=== PATIENT | male | born 1955 | race Caucasian/White ===

== ENCOUNTER 2021-03-03 14:27 | Inpatient (IN) | payer MEDICAID ==
[~2021-03-03] VITALS: Ht 167.6 cm; Wt 59.9 kg
[2021-03-03] MEDS ORDERED: PIPERACILLIN/TAZ 3.375G PREMIX 50 ML IV ONE (15:30)
[2021-03-03] MEDS ORDERED: VANCOMYCIN 1 G PREMIX 200 ML IV ONE (15:30)
[2021-03-03] MEDS ORDERED: SODIUM CHLORIDE 0.9% 1000ML BAG (SEPSIS BOLUS) IV ONE (15:30)
[2021-03-03 15:50] LABS: BASOPHILS % 0.7 % (0.0-2.0); EOSINOPHILS % 1.2 % (0.0-5.0); HEMOGLOBIN. 10.6 g/dL (14.0-18.0); LYMPHOCYTES % 12.8 % (20.0-50.0); MEAN CORPUSCULAR HEMOGLOBIN 29.8 pg (28.0-32.0); MEAN CORPUSCULAR VOLUME 93.2 fL (80.0-94.0); MEAN PLATELET VOLUME 8.8 fl (7.4-10.4); MONOCYTES % 6.2 % (2.0-8.0); NEUTROPHILS % 79.1 % (40.0-76.0); PLATELET 225 x1000/uL (130-400); RED BLOOD CELL COUNT 3.54 mill/uL (4.7-6.1); RED CELL DISTRIBUTION WIDTH 16.6 % (11.6-14.6)
[2021-03-03 15:52] LABS: CHLORIDE 101 mEq/L (98-107)
[2021-03-03 15:55] LABS: INR 1.1; PARTIAL THROMBOPLASTIN TIME 33.3 sec (23.4-31.0); PROTHROMBIN TIME 11.5 sec (9.6-11.0)
[2021-03-03 15:56] LABS: ETHANOL BLOOD < 10 mg/dL
[2021-03-03 16:22] LABS: BG BASE EXCESS -0.2 mmol/L (-2.0-2.0); BG CARBOXYHEMOGLOBIN 4.3 % (0.5-1.5); BG DEOXYHEMOGLOBIN 17.9 % (0.0-5.0); BG FRACTION INSPIRED OXYGEN 36; BG HCO3 ACT 25.7 mmol/L (22.0-26.0); BG METHEMOGLOBIN 0.3 % (0.0-1.5); BG OXYGEN SATURATION 81.2 % (92.0-98.5); BG OXYHEMOGLOBIN 77.5 % (94.0-97.0); BG PCO2 47.1 mmHg (35.0-45.0); BG PH 7.354 (7.350-7.450); BG PO2 46.7 mmHg (75.0-100.0); BG SAMPLE SITE RIGHT RADIAL; BG TOTAL HEMOGLOBIN 11.2 g/dL (12.0-18.0); BG VENT MODE NASAL CANNULA
[2021-03-03] MEDS ORDERED: PROPOFOL 10MG/ML 100ML 100 ML IV STA (16:38)
[2021-03-03 18:48] LABS: BG CARBOXYHEMOGLOBIN 2.9 % (0.5-1.5); BG DEOXYHEMOGLOBIN 11.9 % (0.0-5.0); BG FRACTION INSPIRED OXYGEN 100; BG HCO3 ACT 23.2 mmol/L (22.0-26.0); BG METHEMOGLOBIN 0.2 % (0.0-1.5); BG OXYGEN SATURATION 87.7 % (92.0-98.5); BG PCO2 46.6 mmHg (35.0-45.0); BG PH 7.315 (7.350-7.450); BG PO2 58.5 mmHg (75.0-100.0); BG SAMPLE SITE RIGHT RADIAL; BG TOTAL HEMOGLOBIN 10.9 g/dL (12.0-18.0); BG VENT MODE VENT - AC
[2021-03-04] VITALS (21 sets, daily range): BP systolic 106–175; BP diastolic 42–111
[2021-03-04] MEDS ORDERED: PROPOFOL 10MG/ML 100ML 100 ML IV SCH ×2 (03:45→12:15)
[2021-03-04 05:04] LABS: BASOPHILS % 0.6 % (0.0-2.0); EOSINOPHILS % 1.1 % (0.0-5.0); HEMATOCRIT. 33.5 % (42.0-52.0); HEMOGLOBIN. 10.5 g/dL (14.0-18.0); LYMPHOCYTES % 15.6 % (20.0-50.0); MEAN CORPUSCULAR HEMOGLOBIN 29.7 pg (28.0-32.0); MEAN CORPUSCULAR VOLUME 94.7 fL (80.0-94.0); MEAN PLATELET VOLUME 8.8 fl (7.4-10.4); NEUTROPHILS % 73.7 % (40.0-76.0); PLATELET 187 x1000/uL (130-400); RED BLOOD CELL COUNT 3.54 mill/uL (4.7-6.1); RED CELL DISTRIBUTION WIDTH 16.8 % (11.6-14.6)
[2021-03-04 05:16] LABS: PHOSPHORUS 4.5 mg/dL (2.5-4.9)
[2021-03-04] MEDS: BLOOD SUGAR DIAGNOSTIC STRIP TEST SCH ×3 (06:30→18:28)
[2021-03-04] MEDS ORDERED: BLOOD SUGAR DIAGNOSTIC STRIP TEST SCH (06:30)
[2021-03-04] MEDS: INSULIN LISPRO 100 UNITS/ML SUBCUT SCH ×3 (09:23→18:00)
[2021-03-04] MEDS: DEXTROSE 50% WATER 50ML SYRINGE IV PRN ×2 (09:40→14:19)
[2021-03-04] MEDS: CEFEPIME 1,000 MG in DEXTROSE 5% WATER 50 ML IV SCH (14:19)
[2021-03-04] MEDS: ENOXAPARIN 80MG/0.8ML SYR SUBCUT SCH (14:23)
[2021-03-04] MEDS ORDERED: IOHEXOL-350 100 ML BOTTLE ONE (15:21)
[2021-03-04 16:09] LABS: HEPATITIS B SURFACE ANTIGEN NEGATIVE
[2021-03-04 17:39] LABS: CLARITY URINE CLOUDY (CLEAR); COLOR URINE DARK YELLOW (YELLOW); KETONES URINE NEGATIVE (NEGATIVE); LEUKOCYTE ESTERASE URINE 1+ (NEGATIVE); NITRITE URINE NEGATIVE (NEGATIVE); OCCULT BLOOD URINE TRACE (NEGATIVE); PH URINE 6.5 (4.5-8.0); PROTEIN URINE 4+ (NEGATIVE); UROBILINOGEN URINE 0.2 E.U./dL (0.2-1.0)
[2021-03-04] MEDS ORDERED: FENTANYL CITRATE/PF 1,000 MCG in SODIUM CHLORIDE 0.9% 80 ML IV PRN (18:15)
[2021-03-04] MEDS ORDERED: MIDAZOLAM 100MG/100ML PMX 100 ML IV PRN (18:15)
[2021-03-04] MEDS ORDERED: MIDAZOLAM HCL 100 MG in SODIUM CHLORIDE 0.9% 100 ML IV PRN (18:30)
[2021-03-04] MEDS ORDERED: NOREPINEPHRINE 8MG/250ML PMX 250 ML IV ONE (18:30)
[2021-03-04] MEDS: PROPOFOL 10MG/ML 100ML 100 ML IV PRN ×2 (18:33→22:14)
[2021-03-04] MEDS: DOPAMINE 400MG/250ML PREMIX 250 ML IV PRN (19:15)
[2021-03-04] MEDS: FENTANYL CITRATE 2,500 MCG in SODIUM CHLORIDE 0.9% 200 ML IV PRN (19:46)
[2021-03-04] MEDS: NOREPINEPHRINE 8 MG in DEXTROSE 5% WATER 250 ML IV PRN (22:16)
[2021-03-05] VITALS (112 sets, daily range): BP systolic 75–198; BP diastolic 52–136
[2021-03-05] MEDS: BLOOD SUGAR DIAGNOSTIC STRIP TEST SCH ×4 (00:40→18:00)
[2021-03-05 05:50] LABS: BASOPHILS % 0.8 % (0.0-2.0); EOSINOPHILS % 1.3 % (0.0-5.0); HEMATOCRIT. 36.7 % (42.0-52.0); HEMOGLOBIN. 11.9 g/dL (14.0-18.0); LYMPHOCYTES % 15.5 % (20.0-50.0); MEAN CORPUSCULAR HEMOGLOBIN 29.9 pg (28.0-32.0); MEAN CORPUSCULAR VOLUME 92.4 fL (80.0-94.0); MEAN PLATELET VOLUME 8.4 fl (7.4-10.4); MONOCYTES % 9.3 % (2.0-8.0); NEUTROPHILS % 73.1 % (40.0-76.0); PLATELET 206 x1000/uL (130-400); RED BLOOD CELL COUNT 3.97 mill/uL (4.7-6.1); RED CELL DISTRIBUTION WIDTH 16.8 % (11.6-14.6)
[2021-03-05] MEDS: DEXTROSE 50% WATER 50ML SYRINGE IV PRN (05:58)
[2021-03-05] MEDS: INSULIN LISPRO 100 UNITS/ML SUBCUT SCH ×4 (06:00→18:00)
[2021-03-05 06:19] LABS: PHOSPHORUS 3.4 mg/dL (2.5-4.9)
[2021-03-05] MEDS: PROPOFOL 10MG/ML 100ML 100 ML IV PRN ×2 (06:45→20:42)
[2021-03-05 08:14] LABS: BG BASE EXCESS -2.1 mmol/L (-2.0-2.0); BG CARBOXYHEMOGLOBIN 0.5 % (0.5-1.5); BG DEOXYHEMOGLOBIN 4.6 % (0.0-5.0); BG FRACTION INSPIRED OXYGEN 70; BG HCO3 ACT 22.8 mmol/L (22.0-26.0); BG METHEMOGLOBIN 0.1 % (0.0-1.5); BG OXYGEN SATURATION 95.4 % (92.0-98.5); BG OXYHEMOGLOBIN 94.8 % (94.0-97.0); BG PCO2 39.5 mmHg (35.0-45.0); BG PH 7.379 (7.350-7.450); BG PO2 80.9 mmHg (75.0-100.0); BG SAMPLE SITE RIGHT BRACHIAL; BG TOTAL HEMOGLOBIN 12.2 g/dL (12.0-18.0); BG TOTAL RESPIRATORY RATE 14 b/min; BG VENT MODE VENT - AC
[2021-03-05] MEDS ORDERED: POTASSIUM CHLORIDE 20MEQ/PACKET PO NR (09:00)
[2021-03-05] MEDS: CEFEPIME 1,000 MG in DEXTROSE 5% WATER 50 ML IV SCH (12:17)
[2021-03-05] MEDS: METHYLPREDNISOLONE SOD SUCC 40 MG/ML VIAL IV SCH ×2 (12:24→22:50)
[2021-03-05] MEDS: ENOXAPARIN 80MG/0.8ML SYR SUBCUT SCH (14:19)
[2021-03-06] VITALS (86 sets, daily range): BP systolic 108–148; BP diastolic 58–94
[2021-03-06] MEDS: PROPOFOL 10MG/ML 100ML 100 ML IV PRN ×3 (05:46→23:44)
[2021-03-06] MEDS: BLOOD SUGAR DIAGNOSTIC STRIP TEST SCH ×5 (05:47→23:39)
[2021-03-06] MEDS: METHYLPREDNISOLONE SOD SUCC 40 MG/ML VIAL IV SCH ×3 (05:47→21:27)
[2021-03-06] MEDS: INSULIN LISPRO 100 UNITS/ML SUBCUT SCH ×5 (05:47→23:45)
[2021-03-06 06:17] LABS: HEMATOCRIT. 34.6 % (42.0-52.0); HEMOGLOBIN. 10.9 g/dL (14.0-18.0); MEAN CORPUSCULAR HEMOGLOBIN 29.4 pg (28.0-32.0); MEAN CORPUSCULAR VOLUME 93.1 fL (80.0-94.0); MEAN PLATELET VOLUME 8.4 fl (7.4-10.4); PLATELET 217 x1000/uL (130-400); RED BLOOD CELL COUNT 3.72 mill/uL (4.7-6.1); RED CELL DISTRIBUTION WIDTH 16.8 % (11.6-14.6)
[2021-03-06 08:29] LABS: PHOSPHORUS 5.9 mg/dL (2.5-4.9)
[2021-03-06 08:55] LABS: PLATELET ESTIMATE NORMAL
[2021-03-06 09:49] LABS: BG BASE EXCESS -3.5 mmol/L (-2.0-2.0); BG CARBOXYHEMOGLOBIN 0.7 % (0.5-1.5); BG DEOXYHEMOGLOBIN 10.7 % (0.0-5.0); BG FRACTION INSPIRED OXYGEN 70; BG HCO3 ACT 22.2 mmol/L (22.0-26.0); BG METHEMOGLOBIN 0.3 % (0.0-1.5); BG OXYGEN SATURATION 89.2 % (92.0-98.5); BG OXYHEMOGLOBIN 88.3 % (94.0-97.0); BG PCO2 42.4 mmHg (35.0-45.0); BG PH 7.337 (7.350-7.450); BG PO2 61.9 mmHg (75.0-100.0); BG TOTAL HEMOGLOBIN 12.1 g/dL (12.0-18.0); BG VENT MODE VENT - AC
[2021-03-06] MEDS: ENOXAPARIN 80MG/0.8ML SYR SUBCUT SCH (13:00)
[2021-03-06] MEDS ORDERED: SODIUM BICARBONATE 4% (2.4MEQ) 5ML VIAL IV ONE (13:20)
[2021-03-06] MEDS: CEFEPIME 1,000 MG in DEXTROSE 5% WATER 50 ML IV SCH (14:20)
[2021-03-06] MEDS: LANTHANUM CARBONATE 500MG CHEW TABLET PO SCH ×2 (14:20→17:50)
[2021-03-06] MEDS ORDERED: ENOXAPARIN 80MG/0.8ML SYR SUBCUT SCH (15:00)
[2021-03-07] VITALS (93 sets, daily range): BP systolic 110–153; BP diastolic 58–96
[2021-03-07] MEDS: FENTANYL CITRATE 2,500 MCG in SODIUM CHLORIDE 0.9% 200 ML IV PRN (03:32)
[2021-03-07] MEDS: BLOOD SUGAR DIAGNOSTIC STRIP TEST SCH ×4 (05:45→23:47)
[2021-03-07] MEDS: INSULIN LISPRO 100 UNITS/ML SUBCUT SCH ×4 (05:50→23:21)
[2021-03-07] MEDS: METHYLPREDNISOLONE SOD SUCC 40 MG/ML VIAL IV SCH ×3 (05:50→22:21)
[2021-03-07 05:59] LABS: HEMATOCRIT. 33.9 % (42.0-52.0); HEMOGLOBIN. 10.7 g/dL (14.0-18.0); MEAN CORPUSCULAR HEMOGLOBIN 29.9 pg (28.0-32.0); MEAN CORPUSCULAR VOLUME 94.4 fL (80.0-94.0); MEAN PLATELET VOLUME 8.2 fl (7.4-10.4); PLATELET 187 x1000/uL (130-400)
[2021-03-07] MEDS: ZINC SULFATE 220 MG ( 50 ) CAPSULE PO SCH (08:49)
[2021-03-07] MEDS: ASCORBIC ACID 500 MG TABLET PO SCH (08:49)
[2021-03-07] MEDS: LANTHANUM CARBONATE 500MG CHEW TABLET PO SCH ×3 (08:49→18:20)
[2021-03-07] MEDS: ENOXAPARIN 80MG/0.8ML SYR SUBCUT SCH (08:49)
[2021-03-07] MEDS: PROPOFOL 10MG/ML 100ML 100 ML IV PRN ×2 (08:50→18:22)
[2021-03-07 09:10] LABS: BG BASE EXCESS -4.2 mmol/L (-2.0-2.0); BG CARBOXYHEMOGLOBIN 0.5 % (0.5-1.5); BG DEOXYHEMOGLOBIN 3.3 % (0.0-5.0); BG FRACTION INSPIRED OXYGEN 40; BG HCO3 ACT 20.3 mmol/L (22.0-26.0); BG METHEMOGLOBIN 0.3 % (0.0-1.5); BG OXYGEN SATURATION 96.7 % (92.0-98.5); BG OXYHEMOGLOBIN 95.9 % (94.0-97.0); BG PCO2 34.8 mmHg (35.0-45.0); BG PH 7.383 (7.350-7.450); BG PO2 93.4 mmHg (75.0-100.0); BG SAMPLE SITE RIGHT BRACHIAL; BG TOTAL HEMOGLOBIN 11.3 g/dL (12.0-18.0); BG VENT MODE VENT - AC
[2021-03-07 10:30] LABS: INR 1.1; PROTHROMBIN TIME 11.5 sec (9.6-11.0)
[2021-03-07 12:50] LABS: PLATELET ESTIMATE NORMAL
[2021-03-07] MEDS: CEFEPIME 1,000 MG in DEXTROSE 5% WATER 50 ML IV SCH (13:23)
[2021-03-08] VITALS (98 sets, daily range): BP systolic 81–193; BP diastolic 50–101
[2021-03-08] MEDS: FENTANYL CITRATE 2,500 MCG in SODIUM CHLORIDE 0.9% 200 ML IV PRN (05:09)
[2021-03-08] MEDS: BLOOD SUGAR DIAGNOSTIC STRIP TEST SCH ×3 (05:38→17:43)
[2021-03-08] MEDS: PROPOFOL 10MG/ML 100ML 100 ML IV PRN ×2 (05:38→12:57)
[2021-03-08] MEDS: INSULIN LISPRO 100 UNITS/ML SUBCUT SCH ×4 (05:38→17:43)
[2021-03-08] MEDS: METHYLPREDNISOLONE SOD SUCC 40 MG/ML VIAL IV SCH ×3 (05:56→21:13)
[2021-03-08 06:00] LABS: HEMATOCRIT. 33.4 % (42.0-52.0); HEMOGLOBIN. 10.7 g/dL (14.0-18.0); MEAN CORPUSCULAR VOLUME 96.5 fL (80.0-94.0); MEAN PLATELET VOLUME 8.3 fl (7.4-10.4); PLATELET 178 x1000/uL (130-400); RED BLOOD CELL COUNT 3.46 mill/uL (4.7-6.1); RED CELL DISTRIBUTION WIDTH 17.7 % (11.6-14.6)
[2021-03-08 06:01] LABS: CHLORIDE 105 mEq/L (98-107)
[2021-03-08 08:07] LABS: PROTHROMBIN TIME 10.9 sec (9.6-11.0)
[2021-03-08] MEDS: ASCORBIC ACID 500 MG TABLET PO SCH (08:28)
[2021-03-08] MEDS: LANTHANUM CARBONATE 500MG CHEW TABLET PO SCH ×3 (08:28→17:47)
[2021-03-08] MEDS: ENOXAPARIN 80MG/0.8ML SYR SUBCUT SCH (08:28)
[2021-03-08] MEDS: ZINC SULFATE 220 MG ( 50 ) CAPSULE PO SCH (08:28)
[2021-03-08 09:13] LABS: BG CARBOXYHEMOGLOBIN 0.2 % (0.5-1.5); BG DEOXYHEMOGLOBIN 2.3 % (0.0-5.0); BG FRACTION INSPIRED OXYGEN 40; BG HCO3 ACT 20.5 mmol/L (22.0-26.0); BG METHEMOGLOBIN 0.3 % (0.0-1.5); BG OXYGEN SATURATION 97.7 % (92.0-98.5); BG OXYHEMOGLOBIN 97.2 % (94.0-97.0); BG PCO2 39.6 mmHg (35.0-45.0); BG PH 7.331 (7.350-7.450); BG PO2 109.5 mmHg (75.0-100.0); BG SAMPLE SITE LEFT BRACHIAL; BG TOTAL HEMOGLOBIN 11.1 g/dL (12.0-18.0); BG TOTAL RESPIRATORY RATE 14 b/min; BG VENT MODE VENT - AC
[2021-03-08 10:35] LABS: PLATELET ESTIMATE NORMAL
[2021-03-08] MEDS ORDERED: SODIUM BICARBONATE 4% (2.4MEQ) 5ML VIAL IV ONE (10:40)
[2021-03-08] MEDS: CEFEPIME 1,000 MG in DEXTROSE 5% WATER 50 ML IV SCH (13:01)
[2021-03-08] MEDS: DOPAMINE 400MG/250ML PREMIX 250 ML IV PRN (15:06)
[2021-03-08] MEDS ORDERED: PROPOFOL 10MG/ML 100ML 100 ML IV PRN (17:16)
[2021-03-09] VITALS (91 sets, daily range): BP systolic 110–166; BP diastolic 62–101
[2021-03-09] MEDS: FENTANYL CITRATE 2,500 MCG in SODIUM CHLORIDE 0.9% 200 ML IV PRN (04:00)
[2021-03-09] MEDS: METHYLPREDNISOLONE SOD SUCC 40 MG/ML VIAL IV SCH ×3 (05:48→21:01)
[2021-03-09] MEDS: BLOOD SUGAR DIAGNOSTIC STRIP TEST SCH ×4 (05:49→17:25)
[2021-03-09] MEDS: INSULIN LISPRO 100 UNITS/ML SUBCUT SCH ×4 (05:49→17:47)
[2021-03-09] MEDS: ZINC SULFATE 220 MG ( 50 ) CAPSULE PO SCH (09:13)
[2021-03-09] MEDS: ASCORBIC ACID 500 MG TABLET PO SCH (09:13)
[2021-03-09] MEDS: ENOXAPARIN 80MG/0.8ML SYR SUBCUT SCH (09:13)
[2021-03-09] MEDS: LANTHANUM CARBONATE 500MG CHEW TABLET PO SCH ×3 (09:13→17:44)
[2021-03-09] MEDS: PROPOFOL 10MG/ML 100ML 100 ML IV PRN ×2 (09:31→23:32)
[2021-03-10] VITALS (84 sets, daily range): BP systolic 112–165; BP diastolic 71–108
[2021-03-10] MEDS: BLOOD SUGAR DIAGNOSTIC STRIP TEST SCH ×5 (00:49→23:11)
[2021-03-10] MEDS: INSULIN LISPRO 100 UNITS/ML SUBCUT SCH ×5 (00:55→23:11)
[2021-03-10] MEDS: FENTANYL CITRATE/PF 2,500 MCG in SODIUM CHLORIDE 0.9% 200 ML IV PRN (00:58)
[2021-03-10 05:47] LABS: BASOPHILS % 0.1 % (0.0-2.0); EOSINOPHILS % 0.1 % (0.0-5.0); HEMATOCRIT. 32.9 % (42.0-52.0); HEMOGLOBIN. 10.4 g/dL (14.0-18.0); LYMPHOCYTES % 12.6 % (20.0-50.0); MEAN CORPUSCULAR HEMOGLOBIN 29.4 pg (28.0-32.0); MEAN CORPUSCULAR VOLUME 92.8 fL (80.0-94.0); MEAN PLATELET VOLUME 7.8 fl (7.4-10.4); MONOCYTES % 7.9 % (2.0-8.0); NEUTROPHILS % 79.3 % (40.0-76.0); PLATELET 142 x1000/uL (130-400); RED BLOOD CELL COUNT 3.55 mill/uL (4.7-6.1); RED CELL DISTRIBUTION WIDTH 17.6 % (11.6-14.6)
[2021-03-10] MEDS: METHYLPREDNISOLONE SOD SUCC 40 MG/ML VIAL IV SCH ×3 (06:31→21:51)
[2021-03-10] MEDS: ENOXAPARIN 80MG/0.8ML SYR SUBCUT SCH (08:36)
[2021-03-10] MEDS: PROPOFOL 10MG/ML 100ML 100 ML IV PRN (09:45)
[2021-03-10] MEDS: ZINC SULFATE 220 MG ( 50 ) CAPSULE PO SCH (09:49)
[2021-03-10] MEDS: ASCORBIC ACID 500 MG TABLET PO SCH (09:49)
[2021-03-10] MEDS: LANTHANUM CARBONATE 500MG CHEW TABLET PO SCH ×3 (09:49→17:29)
[2021-03-10] MEDS ORDERED: AMLODIPINE 5MG TABLET PO NR (17:00)
[2021-03-10] MEDS ORDERED: HYDRALAZINE 20MG/ML VIAL IV PRN (22:45)
[2021-03-10] MEDS: HYDRALAZINE HCL 25MG TABLET PO SCH (23:10)
[2021-03-11] VITALS (89 sets, daily range): BP systolic 108–174; BP diastolic 60–101
[2021-03-11] MEDS: PROPOFOL 10MG/ML 100ML 100 ML IV PRN ×3 (00:43→21:41)
[2021-03-11] MEDS: BLOOD SUGAR DIAGNOSTIC STRIP TEST SCH ×4 (05:18→23:17)
[2021-03-11] MEDS: METHYLPREDNISOLONE SOD SUCC 40 MG/ML VIAL IV SCH ×3 (06:09→21:34)
[2021-03-11 06:10] LABS: HEMOGLOBIN. 11.9 g/dL (14.0-18.0); MEAN CORPUSCULAR HEMOGLOBIN 29.5 pg (28.0-32.0); MEAN CORPUSCULAR VOLUME 93.9 fL (80.0-94.0); PLATELET 153 x1000/uL (130-400); RED BLOOD CELL COUNT 4.04 mill/uL (4.7-6.1); RED CELL DISTRIBUTION WIDTH 17.2 % (11.6-14.6)
[2021-03-11] MEDS: INSULIN LISPRO 100 UNITS/ML SUBCUT SCH ×4 (06:10→23:17)
[2021-03-11] MEDS: LANTHANUM CARBONATE 500MG CHEW TABLET PO SCH ×3 (08:07→17:28)
[2021-03-11] MEDS: ZINC SULFATE 220 MG ( 50 ) CAPSULE PO SCH (08:07)
[2021-03-11] MEDS: AMLODIPINE 5MG TABLET PO SCH (08:08)
[2021-03-11] MEDS: ASCORBIC ACID 500 MG TABLET PO SCH (08:08)
[2021-03-11] MEDS: ENOXAPARIN 80MG/0.8ML SYR SUBCUT SCH (08:09)
[2021-03-11] MEDS: HYDRALAZINE HCL 25MG TABLET PO SCH ×3 (08:09→17:28)
[2021-03-11 10:05] LABS: BG BASE EXCESS -0.1 mmol/L (-2.0-2.0); BG CARBOXYHEMOGLOBIN 0.7 % (0.5-1.5); BG DEOXYHEMOGLOBIN 2.1 % (0.0-5.0); BG FRACTION INSPIRED OXYGEN 40; BG HCO3 ACT 24.8 mmol/L (22.0-26.0); BG OXYGEN SATURATION 97.9 % (92.0-98.5); BG OXYHEMOGLOBIN 97.2 % (94.0-97.0); BG PCO2 41.1 mmHg (35.0-45.0); BG PH 7.398 (7.350-7.450); BG PO2 109.1 mmHg (75.0-100.0); BG SAMPLE SITE RIGHT RADIAL; BG TOTAL HEMOGLOBIN 11.8 g/dL (12.0-18.0); BG TOTAL RESPIRATORY RATE 14 b/min; BG VENT MODE VENT - SIMV
[2021-03-11 11:29] LABS: PLATELET ESTIMATE NORMAL
[2021-03-11] MEDS: FENTANYL CITRATE/PF 2,500 MCG in SODIUM CHLORIDE 0.9% 200 ML IV PRN (12:49)
[2021-03-12] VITALS (48 sets, daily range): BP systolic 128–163; BP diastolic 65–97
[2021-03-12] MEDS: BLOOD SUGAR DIAGNOSTIC STRIP TEST SCH ×3 (05:08→17:39)
[2021-03-12] MEDS: METHYLPREDNISOLONE SOD SUCC 40 MG/ML VIAL IV SCH ×3 (05:08→21:36)
[2021-03-12] MEDS: INSULIN LISPRO 100 UNITS/ML SUBCUT SCH ×3 (05:09→17:48)
[2021-03-12 06:20] LABS: HEMATOCRIT. 36.3 % (42.0-52.0); HEMOGLOBIN. 11.2 g/dL (14.0-18.0); MEAN CORPUSCULAR HEMOGLOBIN 28.6 pg (28.0-32.0); MEAN CORPUSCULAR VOLUME 92.8 fL (80.0-94.0); MEAN PLATELET VOLUME 8.3 fl (7.4-10.4); PLATELET 135 x1000/uL (130-400); RED BLOOD CELL COUNT 3.91 mill/uL (4.7-6.1); RED CELL DISTRIBUTION WIDTH 17.2 % (11.6-14.6)
[2021-03-12] MEDS: ENOXAPARIN 80MG/0.8ML SYR SUBCUT SCH (08:13)
[2021-03-12] MEDS: ASCORBIC ACID 500 MG TABLET PO SCH (08:13)
[2021-03-12] MEDS: HYDRALAZINE HCL 25MG TABLET PO SCH ×3 (08:16→17:47)
[2021-03-12] MEDS: AMLODIPINE 5MG TABLET PO SCH (08:16)
[2021-03-12] MEDS: LANTHANUM CARBONATE 500MG CHEW TABLET PO SCH ×3 (08:16→17:47)
[2021-03-12] MEDS: ZINC SULFATE 220 MG ( 50 ) CAPSULE PO SCH (08:16)
[2021-03-12 09:40] LABS: BG BASE EXCESS -1.5 mmol/L (-2.0-2.0); BG CARBOXYHEMOGLOBIN 0.3 % (0.5-1.5); BG DEOXYHEMOGLOBIN 1.3 % (0.0-5.0); BG FRACTION INSPIRED OXYGEN 40; BG HCO3 ACT 23.8 mmol/L (22.0-26.0); BG METHEMOGLOBIN 0.3 % (0.0-1.5); BG OXYGEN SATURATION 98.7 % (92.0-98.5); BG OXYHEMOGLOBIN 98.1 % (94.0-97.0); BG PCO2 42.2 mmHg (35.0-45.0); BG PH 7.369 (7.350-7.450); BG PO2 144.3 mmHg (75.0-100.0); BG TOTAL HEMOGLOBIN 11.8 g/dL (12.0-18.0); BG VENT MODE VENT - SIMV
[2021-03-12 10:21] LABS: PLATELET ESTIMATE NORMAL
[2021-03-12] MEDS: PROPOFOL 10MG/ML 100ML 100 ML IV PRN (10:57)
[2021-03-12] MEDS: LOSARTAN POTASSIUM 25 MG TABLET NG SCH (12:50)
[2021-03-12] MEDS: FENTANYL CITRATE/PF 2,500 MCG in SODIUM CHLORIDE 0.9% 200 ML IV PRN (18:14)
[2021-03-12] MEDS ORDERED: PROPOFOL 10MG/ML 100ML 100 ML IV PRN (20:30)
[2021-03-13] VITALS (74 sets, daily range): BP systolic 75–168; BP diastolic 41–105
[2021-03-13] MEDS: BLOOD SUGAR DIAGNOSTIC STRIP TEST SCH ×4 (00:17→17:44)
[2021-03-13] MEDS: INSULIN LISPRO 100 UNITS/ML SUBCUT SCH ×4 (00:19→17:44)
[2021-03-13] MEDS: METHYLPREDNISOLONE SOD SUCC 40 MG/ML VIAL IV SCH ×3 (05:28→21:58)
[2021-03-13 06:51] LABS: PHOSPHORUS 6.2 mg/dL (2.5-4.9)
[2021-03-13] MEDS: LANTHANUM CARBONATE 500MG CHEW TABLET PO SCH ×3 (08:20→17:44)
[2021-03-13] MEDS: HYDRALAZINE HCL 25MG TABLET PO SCH ×3 (09:00→17:00)
[2021-03-13] MEDS: ASCORBIC ACID 500 MG TABLET PO SCH (09:00)
[2021-03-13] MEDS: LOSARTAN POTASSIUM 25 MG TABLET NG SCH (09:00)
[2021-03-13] MEDS: AMLODIPINE 5MG TABLET PO SCH (09:00)
[2021-03-13] MEDS: ZINC SULFATE 220 MG ( 50 ) CAPSULE PO SCH (09:00)
[2021-03-13 09:06] LABS: HEMATOCRIT. 36.3 % (42.0-52.0); HEMOGLOBIN. 11.3 g/dL (14.0-18.0); MEAN CORPUSCULAR HEMOGLOBIN 28.8 pg (28.0-32.0); MEAN CORPUSCULAR VOLUME 92.8 fL (80.0-94.0); MEAN PLATELET VOLUME 8.3 fl (7.4-10.4); PLATELET 182 x1000/uL (130-400); RED BLOOD CELL COUNT 3.91 mill/uL (4.7-6.1); RED CELL DISTRIBUTION WIDTH 17.3 % (11.6-14.6)
[2021-03-13] MEDS: ENOXAPARIN 80MG/0.8ML SYR SUBCUT SCH (09:42)
[2021-03-13 10:03] LABS: BG BASE EXCESS -5.1 mmol/L (-2.0-2.0); BG CARBOXYHEMOGLOBIN 0.3 % (0.5-1.5); BG DEOXYHEMOGLOBIN 2.5 % (0.0-5.0); BG FRACTION INSPIRED OXYGEN 40; BG HCO3 ACT 20.3 mmol/L (22.0-26.0); BG METHEMOGLOBIN 0.3 % (0.0-1.5); BG OXYGEN SATURATION 97.5 % (92.0-98.5); BG OXYHEMOGLOBIN 96.9 % (94.0-97.0); BG PCO2 38.9 mmHg (35.0-45.0); BG PH 7.335 (7.350-7.450); BG PO2 112.5 mmHg (75.0-100.0); BG SAMPLE SITE RIGHT RADIAL; BG TOTAL HEMOGLOBIN 12.4 g/dL (12.0-18.0); BG TOTAL RESPIRATORY RATE 20 b/min; BG VENT MODE VENT - SIMV
[2021-03-13 12:05] LABS: PLATELET ESTIMATE NORMAL
[2021-03-13] MEDS: NOREPINEPHRINE 8 MG in DEXTROSE 5% WATER 250 ML IV PRN (16:03)
[2021-03-13] MEDS: PIPERACILLIN/TAZOBACTAM 3.375 G in DEXTROSE 5% WATER 50 ML IV SCH (22:20)
[2021-03-14] VITALS (94 sets, daily range): BP systolic 104–172; BP diastolic 46–113
[2021-03-14] MEDS: METHYLPREDNISOLONE SOD SUCC 40 MG/ML VIAL IV SCH ×3 (05:25→21:48)
[2021-03-14] MEDS: INSULIN LISPRO 100 UNITS/ML SUBCUT SCH ×4 (05:26→18:24)
[2021-03-14] MEDS: BLOOD SUGAR DIAGNOSTIC STRIP TEST SCH ×4 (05:26→18:18)
[2021-03-14 06:14] LABS: HEMATOCRIT. 36.4 % (42.0-52.0); HEMOGLOBIN. 11.4 g/dL (14.0-18.0); MEAN CORPUSCULAR HEMOGLOBIN 29.4 pg (28.0-32.0); MEAN CORPUSCULAR VOLUME 93.8 fL (80.0-94.0); MEAN PLATELET VOLUME 8.5 fl (7.4-10.4); PLATELET 183 x1000/uL (130-400); RED BLOOD CELL COUNT 3.88 mill/uL (4.7-6.1); RED CELL DISTRIBUTION WIDTH 17.3 % (11.6-14.6)
[2021-03-14] MEDS: LANTHANUM CARBONATE 500MG CHEW TABLET PO SCH ×3 (08:33→18:22)
[2021-03-14] MEDS: LOSARTAN POTASSIUM 25 MG TABLET NG SCH (08:59)
[2021-03-14] MEDS: HYDRALAZINE HCL 25MG TABLET PO SCH ×3 (08:59→17:31)
[2021-03-14] MEDS: ASCORBIC ACID 500 MG TABLET PO SCH (08:59)
[2021-03-14] MEDS: AMLODIPINE 5MG TABLET PO SCH (08:59)
[2021-03-14] MEDS: ZINC SULFATE 220 MG ( 50 ) CAPSULE PO SCH (08:59)
[2021-03-14] MEDS: PIPERACILLIN/TAZOBACTAM 3.375 G in DEXTROSE 5% WATER 50 ML IV SCH ×2 (09:00→21:35)
[2021-03-14] MEDS: ENOXAPARIN 80MG/0.8ML SYR SUBCUT SCH (09:37)
[2021-03-14] MEDS ORDERED: PROPOFOL 10MG/ML 100ML 100 ML IV PRN (10:30)
[2021-03-14 11:13] LABS: PLATELET ESTIMATE NORMAL
[2021-03-14 14:25] LABS: BG BASE EXCESS -8.2 mmol/L (-2.0-2.0); BG CARBOXYHEMOGLOBIN 0.4 % (0.5-1.5); BG DEOXYHEMOGLOBIN 3.4 % (0.0-5.0); BG FRACTION INSPIRED OXYGEN 40; BG HCO3 ACT 16.2 mmol/L (22.0-26.0); BG METHEMOGLOBIN 0.3 % (0.0-1.5); BG OXYGEN SATURATION 96.6 % (92.0-98.5); BG OXYHEMOGLOBIN 95.9 % (94.0-97.0); BG PCO2 30.2 mmHg (35.0-45.0); BG PH 7.348 (7.350-7.450); BG PO2 94.9 mmHg (75.0-100.0); BG SAMPLE SITE RIGHT RADIAL; BG TOTAL HEMOGLOBIN 11.6 g/dL (12.0-18.0); BG VENT MODE VENT - CPAP
[2021-03-15] VITALS (95 sets, daily range): BP systolic 102–159; BP diastolic 60–106
[2021-03-15] MEDS: BLOOD SUGAR DIAGNOSTIC STRIP TEST SCH ×5 (00:18→23:24)
[2021-03-15] MEDS: INSULIN LISPRO 100 UNITS/ML SUBCUT SCH ×5 (00:19→23:16)
[2021-03-15] MEDS: METHYLPREDNISOLONE SOD SUCC 40 MG/ML VIAL IV SCH ×3 (05:53→20:50)
[2021-03-15 06:39] LABS: HEMATOCRIT. 31.9 % (42.0-52.0); HEMOGLOBIN. 10.1 g/dL (14.0-18.0); MEAN CORPUSCULAR HEMOGLOBIN 29.5 pg (28.0-32.0); MEAN CORPUSCULAR VOLUME 93.7 fL (80.0-94.0); MEAN PLATELET VOLUME 8.7 fl (7.4-10.4); PLATELET 182 x1000/uL (130-400); RED BLOOD CELL COUNT 3.41 mill/uL (4.7-6.1); RED CELL DISTRIBUTION WIDTH 17.2 % (11.6-14.6)
[2021-03-15] MEDS: PIPERACILLIN/TAZOBACTAM 3.375 G in DEXTROSE 5% WATER 50 ML IV SCH ×2 (08:22→20:49)
[2021-03-15] MEDS: ZINC SULFATE 220 MG ( 50 ) CAPSULE PO SCH (08:22)
[2021-03-15] MEDS: LOSARTAN POTASSIUM 25 MG TABLET NG SCH (08:22)
[2021-03-15] MEDS: ASCORBIC ACID 500 MG TABLET PO SCH (08:22)
[2021-03-15] MEDS: AMLODIPINE 5MG TABLET PO SCH (08:23)
[2021-03-15] MEDS: ENOXAPARIN 80MG/0.8ML SYR SUBCUT SCH (08:31)
[2021-03-15] MEDS: HYDRALAZINE HCL 25MG TABLET PO SCH ×3 (08:31→16:49)
[2021-03-15] MEDS: LANTHANUM CARBONATE 500MG CHEW TABLET PO SCH ×3 (08:31→18:35)
[2021-03-15 10:34] LABS: PLATELET ESTIMATE NORMAL
[2021-03-15] MEDS: HYDROCODONE/ACETAMINOPHEN 5/325MG TABLET PO PRN (22:31)
[2021-03-16] VITALS (68 sets, daily range): BP systolic 90–166; BP diastolic 57–106
[2021-03-16] MEDS: BLOOD SUGAR DIAGNOSTIC STRIP TEST SCH ×4 (06:00→23:45)
[2021-03-16] MEDS: INSULIN LISPRO 100 UNITS/ML SUBCUT SCH ×4 (06:01→23:50)
[2021-03-16] MEDS: METHYLPREDNISOLONE SOD SUCC 40 MG/ML VIAL IV SCH ×3 (06:01→21:13)
[2021-03-16 06:11] LABS: HEMATOCRIT. 29.5 % (42.0-52.0); HEMOGLOBIN. 9.4 g/dL (14.0-18.0); MEAN CORPUSCULAR HEMOGLOBIN 29.6 pg (28.0-32.0); MEAN CORPUSCULAR VOLUME 92.5 fL (80.0-94.0); MEAN PLATELET VOLUME 8.5 fl (7.4-10.4); PLATELET 223 x1000/uL (130-400); RED BLOOD CELL COUNT 3.19 mill/uL (4.7-6.1); RED CELL DISTRIBUTION WIDTH 17.1 % (11.6-14.6)
[2021-03-16] MEDS: HYDROCODONE/ACETAMINOPHEN 5/325MG TABLET PO PRN (06:49)
[2021-03-16] MEDS: PIPERACILLIN/TAZOBACTAM 3.375 G in DEXTROSE 5% WATER 50 ML IV SCH ×2 (08:18→21:13)
[2021-03-16] MEDS: ENOXAPARIN 80MG/0.8ML SYR SUBCUT SCH (08:18)
[2021-03-16] MEDS: ZINC SULFATE 220 MG ( 50 ) CAPSULE PO SCH (08:19)
[2021-03-16] MEDS: LOSARTAN POTASSIUM 25 MG TABLET NG SCH (08:19)
[2021-03-16] MEDS: HYDRALAZINE HCL 25MG TABLET PO SCH ×3 (08:19→17:36)
[2021-03-16] MEDS: LANTHANUM CARBONATE 500MG CHEW TABLET PO SCH ×3 (08:20→17:36)
[2021-03-16] MEDS: AMLODIPINE 5MG TABLET PO SCH (08:20)
[2021-03-16] MEDS: ASCORBIC ACID 500 MG TABLET PO SCH (08:20)
[2021-03-16 08:42] LABS: PLATELET ESTIMATE NORMAL
[2021-03-16 09:45] LABS: BG BASE EXCESS -1.8 mmol/L (-2.0-2.0); BG CARBOXYHEMOGLOBIN 0.2 % (0.5-1.5); BG DEOXYHEMOGLOBIN 9.1 % (0.0-5.0); BG FRACTION INSPIRED OXYGEN 44; BG HCO3 ACT 22.6 mmol/L (22.0-26.0); BG OXYGEN SATURATION 90.9 % (92.0-98.5); BG OXYHEMOGLOBIN 90.7 % (94.0-97.0); BG PCO2 37.2 mmHg (35.0-45.0); BG PH 7.402 (7.350-7.450); BG PO2 65.4 mmHg (75.0-100.0); BG SAMPLE SITE LEFT RADIAL; BG TOTAL HEMOGLOBIN 9.4 g/dL (12.0-18.0); BG VENT MODE NASAL CANNULA
[2021-03-16] MEDS: METOCLOPRAMIDE HCL 10MG/2ML VIAL IV SCH (21:13)
[2021-03-17] VITALS (72 sets, daily range): BP systolic 80–153; BP diastolic 30–104
[2021-03-17] MEDS: IPRATROPIUM BROMIDE (0.02%) 0.5MG/2.5ML NEB HHN SCH ×6 (00:37→21:02)
[2021-03-17 00:42] LABS: HEMATOCRIT 28.8 % (42.0-52.0)
[2021-03-17] MEDS: METHYLPREDNISOLONE SOD SUCC 40 MG/ML VIAL IV SCH ×3 (05:24→22:03)
[2021-03-17] MEDS: METOCLOPRAMIDE HCL 10MG/2ML VIAL IV SCH ×3 (05:24→22:03)
[2021-03-17] MEDS: BLOOD SUGAR DIAGNOSTIC STRIP TEST SCH ×3 (05:25→18:48)
[2021-03-17] MEDS: INSULIN LISPRO 100 UNITS/ML SUBCUT SCH ×3 (05:25→18:54)
[2021-03-17 06:20] LABS: HEMATOCRIT. 26.9 % (42.0-52.0); HEMOGLOBIN. 8.5 g/dL (14.0-18.0); MEAN CORPUSCULAR HEMOGLOBIN 29.1 pg (28.0-32.0); MEAN CORPUSCULAR VOLUME 92.1 fL (80.0-94.0); MEAN PLATELET VOLUME 8.5 fl (7.4-10.4); PLATELET 205 x1000/uL (130-400); RED BLOOD CELL COUNT 2.92 mill/uL (4.7-6.1); RED CELL DISTRIBUTION WIDTH 17.2 % (11.6-14.6)
[2021-03-17] MEDS: PIPERACILLIN/TAZOBACTAM 3.375 G in DEXTROSE 5% WATER 50 ML IV SCH ×2 (08:54→22:04)
[2021-03-17] MEDS: ZINC SULFATE 220 MG ( 50 ) CAPSULE PO SCH (08:55)
[2021-03-17] MEDS: PANTOPRAZOLE SODIUM 40 MG/VIAL IV SCH (08:55)
[2021-03-17] MEDS: ASCORBIC ACID 500 MG TABLET PO SCH (08:55)
[2021-03-17] MEDS: AMLODIPINE 5MG TABLET PO SCH (08:56)
[2021-03-17] MEDS: HYDRALAZINE HCL 25MG TABLET PO SCH ×3 (08:57→18:54)
[2021-03-17] MEDS: LOSARTAN POTASSIUM 25 MG TABLET NG SCH (08:57)
[2021-03-17] MEDS: LANTHANUM CARBONATE 500MG CHEW TABLET PO SCH ×3 (08:57→18:54)
[2021-03-17 09:16] LABS: BG BASE EXCESS 1.9 mmol/L (-2.0-2.0); BG CARBOXYHEMOGLOBIN 0.5 % (0.5-1.5); BG DEOXYHEMOGLOBIN 3.6 % (0.0-5.0); BG FRACTION INSPIRED OXYGEN 50; BG HCO3 ACT 26.9 mmol/L (22.0-26.0); BG METHEMOGLOBIN 0.1 % (0.0-1.5); BG OXYGEN SATURATION 96.4 % (92.0-98.5); BG OXYHEMOGLOBIN 95.8 % (94.0-97.0); BG PCO2 44.1 mmHg (35.0-45.0); BG PH 7.403 (7.350-7.450); BG PO2 95.6 mmHg (75.0-100.0); BG SAMPLE SITE RIGHT RADIAL; BG TOTAL HEMOGLOBIN 8.2 g/dL (12.0-18.0); BG VENT MODE MASK - BIPAP
[2021-03-17] MEDS: NOREPINEPHRINE 8 MG in DEXTROSE 5% WATER 250 ML IV PRN (14:28)
[2021-03-17 15:11] LABS: PLATELET ESTIMATE NORMAL
[2021-03-17] MEDS ORDERED: VANCOMYCIN 1250MG in DEXTROSE 5% WATER 250ML IV NR (21:00)
[2021-03-18] VITALS (61 sets, daily range): BP systolic 112–155; BP diastolic 35–96
[2021-03-18] MEDS: BLOOD SUGAR DIAGNOSTIC STRIP TEST SCH ×5 (00:24→23:53)
[2021-03-18] MEDS: IPRATROPIUM BROMIDE (0.02%) 0.5MG/2.5ML NEB HHN SCH ×6 (00:56→20:18)
[2021-03-18] MEDS: INSULIN LISPRO 100 UNITS/ML SUBCUT SCH ×5 (01:21→23:41)
[2021-03-18 05:41] LABS: HEMATOCRIT. 24.2 % (42.0-52.0); HEMOGLOBIN. 7.8 g/dL (14.0-18.0); MEAN CORPUSCULAR HEMOGLOBIN 29.7 pg (28.0-32.0); MEAN CORPUSCULAR VOLUME 92.1 fL (80.0-94.0); MEAN PLATELET VOLUME 8.2 fl (7.4-10.4); PLATELET 192 x1000/uL (130-400); RED BLOOD CELL COUNT 2.63 mill/uL (4.7-6.1); RED CELL DISTRIBUTION WIDTH 16.6 % (11.6-14.6)
[2021-03-18] MEDS: METOCLOPRAMIDE HCL 10MG/2ML VIAL IV SCH ×3 (05:56→22:01)
[2021-03-18] MEDS: METHYLPREDNISOLONE SOD SUCC 40 MG/ML VIAL IV SCH ×3 (05:56→22:01)
[2021-03-18] MEDS: LANTHANUM CARBONATE 500MG CHEW TABLET PO SCH ×3 (08:00→17:57)
[2021-03-18] MEDS: ASCORBIC ACID 500 MG TABLET PO SCH (08:00)
[2021-03-18] MEDS: PIPERACILLIN/TAZOBACTAM 3.375 G in DEXTROSE 5% WATER 50 ML IV SCH (08:00)
[2021-03-18] MEDS: PANTOPRAZOLE SODIUM 40 MG/VIAL IV SCH (08:00)
[2021-03-18] MEDS: HYDRALAZINE HCL 25MG TABLET PO SCH ×3 (08:01→17:57)
[2021-03-18] MEDS: LOSARTAN POTASSIUM 25 MG TABLET NG SCH (08:01)
[2021-03-18] MEDS: AMLODIPINE 5MG TABLET PO SCH (08:01)
[2021-03-18] MEDS: ZINC SULFATE 220 MG ( 50 ) CAPSULE PO SCH (08:01)
[2021-03-18] MEDS ORDERED: NALOXONE HCL 0.4MG/ML VIAL IV PRN (12:00)
[2021-03-18 12:15] LABS: PLATELET ESTIMATE NORMAL
[2021-03-18] MEDS: HYDROCODONE/ACETAMINOPHEN 5/325MG TABLET PO PRN (14:43)
[2021-03-18 20:54] LABS: T4 FREE 0.65 ng/dL (0.76-1.46)
[2021-03-18 21:18] LABS: FOLIC ACID (FOLATE) SERUM 11.1 ng/mL (>5.38)
[2021-03-19] VITALS (65 sets, daily range): BP systolic 98–151; BP diastolic 57–88
[2021-03-19] MEDS: IPRATROPIUM BROMIDE (0.02%) 0.5MG/2.5ML NEB HHN SCH ×6 (00:16→20:45)
[2021-03-19 06:12] LABS: HEMATOCRIT. 22.9 % (42.0-52.0); HEMOGLOBIN. 7.4 g/dL (14.0-18.0); MEAN CORPUSCULAR VOLUME 92.8 fL (80.0-94.0); MEAN PLATELET VOLUME 8.5 fl (7.4-10.4); PLATELET 201 x1000/uL (130-400); RED BLOOD CELL COUNT 2.47 mill/uL (4.7-6.1); RED CELL DISTRIBUTION WIDTH 16.8 % (11.6-14.6)
[2021-03-19] MEDS: BLOOD SUGAR DIAGNOSTIC STRIP TEST SCH ×3 (06:41→17:40)
[2021-03-19] MEDS: METOCLOPRAMIDE HCL 10MG/2ML VIAL IV SCH ×3 (06:47→22:29)
[2021-03-19] MEDS: INSULIN LISPRO 100 UNITS/ML SUBCUT SCH ×3 (06:47→17:41)
[2021-03-19] MEDS: METHYLPREDNISOLONE SOD SUCC 40 MG/ML VIAL IV SCH ×3 (06:47→22:29)
[2021-03-19] MEDS: AMLODIPINE 5MG TABLET PO SCH (10:25)
[2021-03-19] MEDS: HYDRALAZINE HCL 25MG TABLET PO SCH ×3 (10:25→17:59)
[2021-03-19] MEDS: LANTHANUM CARBONATE 500MG CHEW TABLET PO SCH ×3 (10:25→17:59)
[2021-03-19] MEDS: PANTOPRAZOLE SODIUM 40 MG/VIAL IV SCH ×2 (10:25→18:00)
[2021-03-19] MEDS: LOSARTAN POTASSIUM 25 MG TABLET NG SCH (10:26)
[2021-03-19] MEDS: ZINC SULFATE 220 MG ( 50 ) CAPSULE PO SCH (10:26)
[2021-03-19] MEDS: ASCORBIC ACID 500 MG TABLET PO SCH (10:26)
[2021-03-19 12:23] LABS: PLATELET ESTIMATE NORMAL
[2021-03-19] MEDS: METOPROLOL TARTRATE 25MG TABLET PO SCH ×2 (12:28→21:03)
[2021-03-19] MEDS ORDERED: VANCOMYCIN 750 MG PREMIX 150 ML IV SCH (18:00)
[2021-03-19 19:10] LABS: FERRITIN 1131 ng/mL (22-322)
[2021-03-19 19:24] LABS: VITAMIN B12 SERUM 1133 pg/mL (211-911)
[2021-03-20] VITALS (61 sets, daily range): BP systolic 107–156; BP diastolic 48–83
[2021-03-20] MEDS: BLOOD SUGAR DIAGNOSTIC STRIP TEST SCH ×4 (00:25→18:08)
[2021-03-20] MEDS: INSULIN LISPRO 100 UNITS/ML SUBCUT SCH ×4 (00:29→18:19)
[2021-03-20] MEDS: METHYLPREDNISOLONE SOD SUCC 40 MG/ML VIAL IV SCH ×3 (06:10→21:11)
[2021-03-20] MEDS: METOCLOPRAMIDE HCL 10MG/2ML VIAL IV SCH ×3 (06:11→21:12)
[2021-03-20 06:39] LABS: HEMATOCRIT. 22.4 % (42.0-52.0); HEMOGLOBIN. 7.3 g/dL (14.0-18.0); MEAN CORPUSCULAR HEMOGLOBIN 30.4 pg (28.0-32.0); MEAN CORPUSCULAR VOLUME 93.6 fL (80.0-94.0); MEAN PLATELET VOLUME 8.6 fl (7.4-10.4); PLATELET 207 x1000/uL (130-400); RED CELL DISTRIBUTION WIDTH 16.6 % (11.6-14.6)
[2021-03-20 06:44] LABS: INR 1.1; PROTHROMBIN TIME 11.4 sec (9.6-11.0)
[2021-03-20] MEDS: IPRATROPIUM BROMIDE (0.02%) 0.5MG/2.5ML NEB HHN SCH ×4 (07:55→20:38)
[2021-03-20] MEDS: LOSARTAN POTASSIUM 25 MG TABLET NG SCH (08:10)
[2021-03-20] MEDS: ASCORBIC ACID 500 MG TABLET PO SCH (08:10)
[2021-03-20] MEDS: HYDRALAZINE HCL 25MG TABLET PO SCH ×3 (08:10→17:29)
[2021-03-20] MEDS: ZINC SULFATE 220 MG ( 50 ) CAPSULE PO SCH (08:10)
[2021-03-20] MEDS: AMLODIPINE 5MG TABLET PO SCH (08:10)
[2021-03-20] MEDS: LANTHANUM CARBONATE 500MG CHEW TABLET PO SCH ×3 (08:10→18:19)
[2021-03-20] MEDS: PANTOPRAZOLE SODIUM 40 MG/VIAL IV SCH ×2 (08:10→17:29)
[2021-03-20] MEDS: METOPROLOL TARTRATE 25MG TABLET PO SCH (08:14)
[2021-03-20] MEDS: HYDROCODONE/ACETAMINOPHEN 5/325MG TABLET PO PRN (09:45)
[2021-03-20] MEDS ORDERED: PNEUMOCOCCAL 23-VAL P-SAC VAC 0.5 ML IM ONE (14:15)
[2021-03-20] MEDS ORDERED: INFLUENZA VACCINE 05/PF 0.5 ML SYRINGE IM ONE (14:15)
[2021-03-20 18:07] LABS: PLATELET ESTIMATE NORMAL
[2021-03-20] MEDS: METOPROLOL TARTRATE 50MG TABLET PO SCH (21:12)
[2021-03-21] VITALS (56 sets, daily range): BP systolic 92–147; BP diastolic 43–85
[2021-03-21] MEDS: BLOOD SUGAR DIAGNOSTIC STRIP TEST SCH ×4 (00:24→17:41)
[2021-03-21] MEDS: INSULIN LISPRO 100 UNITS/ML SUBCUT SCH ×4 (00:30→17:54)
[2021-03-21] MEDS: IPRATROPIUM BROMIDE (0.02%) 0.5MG/2.5ML NEB HHN SCH ×7 (00:30→23:52)
[2021-03-21 06:15] LABS: HEMATOCRIT. 21.3 % (42.0-52.0); MEAN CORPUSCULAR VOLUME 91.7 fL (80.0-94.0); MEAN PLATELET VOLUME 8.4 fl (7.4-10.4); PLATELET 207 x1000/uL (130-400); RED BLOOD CELL COUNT 2.32 mill/uL (4.7-6.1); RED CELL DISTRIBUTION WIDTH 16.9 % (11.6-14.6)
[2021-03-21 06:25] LABS: PHOSPHORUS 4.8 mg/dL (2.5-4.9)
[2021-03-21] MEDS: METOCLOPRAMIDE HCL 10MG/2ML VIAL IV SCH ×3 (06:35→20:35)
[2021-03-21] MEDS: METHYLPREDNISOLONE SOD SUCC 40 MG/ML VIAL IV SCH ×3 (06:35→20:35)
[2021-03-21] MEDS: ASCORBIC ACID 500 MG TABLET PO SCH (09:00)
[2021-03-21] MEDS: ZINC SULFATE 220 MG ( 50 ) CAPSULE PO SCH (09:00)
[2021-03-21] MEDS: METOPROLOL TARTRATE 50MG TABLET PO SCH ×2 (10:27→20:36)
[2021-03-21] MEDS: HYDRALAZINE HCL 25MG TABLET PO SCH ×3 (10:27→17:41)
[2021-03-21] MEDS: PANTOPRAZOLE SODIUM 40 MG/VIAL IV SCH ×2 (10:27→17:41)
[2021-03-21] MEDS: LANTHANUM CARBONATE 500MG CHEW TABLET PO SCH ×3 (10:27→17:41)
[2021-03-21] MEDS: LOSARTAN POTASSIUM 25 MG TABLET NG SCH (10:28)
[2021-03-21 14:11] LABS: PLATELET ESTIMATE NORMAL
[2021-03-21 16:54] LABS: HEMATOCRIT 25.5 % (42.0-52.0); HEMOGLOBIN 8.4 g/dL (14.0-18.0)
[2021-03-22] VITALS (45 sets, daily range): BP systolic 90–145; BP diastolic 51–88
[2021-03-22] MEDS: IPRATROPIUM BROMIDE (0.02%) 0.5MG/2.5ML NEB HHN SCH ×5 (04:12→21:12)
[2021-03-22] MEDS: METHYLPREDNISOLONE SOD SUCC 40 MG/ML VIAL IV SCH ×3 (06:11→21:07)
[2021-03-22] MEDS: INSULIN LISPRO 100 UNITS/ML SUBCUT SCH ×5 (06:12→21:10)
[2021-03-22] MEDS: BLOOD SUGAR DIAGNOSTIC STRIP TEST SCH ×5 (06:12→21:07)
[2021-03-22] MEDS: METOCLOPRAMIDE HCL 10MG/2ML VIAL IV SCH ×3 (06:12→21:07)
[2021-03-22 06:28] LABS: HEMATOCRIT. 25.5 % (42.0-52.0); HEMOGLOBIN. 8.6 g/dL (14.0-18.0); MEAN CORPUSCULAR HEMOGLOBIN 30.6 pg (28.0-32.0); MEAN PLATELET VOLUME 8.5 fl (7.4-10.4); PLATELET 196 x1000/uL (130-400); RED CELL DISTRIBUTION WIDTH 16.5 % (11.6-14.6)
[2021-03-22 09:16] LABS: PLATELET ESTIMATE NORMAL
[2021-03-22] MEDS: LOSARTAN POTASSIUM 25 MG TABLET NG SCH (09:20)
[2021-03-22] MEDS: LANTHANUM CARBONATE 500MG CHEW TABLET PO SCH ×3 (09:20→18:10)
[2021-03-22] MEDS: HYDRALAZINE HCL 25MG TABLET PO SCH ×3 (09:21→18:11)
[2021-03-22] MEDS: PANTOPRAZOLE SODIUM 40 MG/VIAL IV SCH ×2 (09:21→18:10)
[2021-03-22] MEDS: METOPROLOL TARTRATE 50MG TABLET PO SCH ×2 (09:21→21:07)
[2021-03-22] MEDS ORDERED: VANCOMYCIN 750 MG PREMIX 150 ML IV NR (14:00)
[2021-03-22] MEDS ORDERED: ATOR40TA70 PO (20:57)
[2021-03-22] MEDS ORDERED: APIX2.5T PO (20:57)
[2021-03-22] MEDS ORDERED: GABA-529 PO (20:57)
[2021-03-22] MEDS ORDERED: CARV6.2548 PO (20:57)
[2021-03-22] MEDS ORDERED: NIFE90TA43 PO (20:57)
[2021-03-23] VITALS (7 sets, daily range): BP systolic 111–148; BP diastolic 48–75
[2021-03-23] MEDS: IPRATROPIUM BROMIDE (0.02%) 0.5MG/2.5ML NEB HHN SCH ×5 (00:02→20:34)
[2021-03-23] MEDS: METHYLPREDNISOLONE SOD SUCC 40 MG/ML VIAL IV SCH ×3 (05:13→20:51)
[2021-03-23] MEDS: METOCLOPRAMIDE HCL 10MG/2ML VIAL IV SCH ×3 (05:13→20:51)
[2021-03-23] MEDS: LANTHANUM CARBONATE 500MG CHEW TABLET PO SCH ×3 (06:17→17:31)
[2021-03-23] MEDS: BLOOD SUGAR DIAGNOSTIC STRIP TEST SCH ×4 (06:20→20:51)
[2021-03-23] MEDS: INSULIN LISPRO 100 UNITS/ML SUBCUT SCH ×4 (06:20→20:53)
[2021-03-23 07:42] LABS: HEMOGLOBIN. 8.5 g/dL (14.0-18.0); MEAN CORPUSCULAR HEMOGLOBIN 31.1 pg (28.0-32.0); MEAN CORPUSCULAR VOLUME 91.4 fL (80.0-94.0); MEAN PLATELET VOLUME 8.2 fl (7.4-10.4); PLATELET 197 x1000/uL (130-400); RED BLOOD CELL COUNT 2.73 mill/uL (4.7-6.1); RED CELL DISTRIBUTION WIDTH 16.8 % (11.6-14.6)
[2021-03-23] MEDS ORDERED: ZINC SULFATE 220 MG ( 50 ) CAPSULE PO SCH (09:00)
[2021-03-23] MEDS ORDERED: ASCORBIC ACID 500 MG TABLET PO SCH (09:00)
[2021-03-23] MEDS: HYDRALAZINE HCL 25MG TABLET PO SCH ×3 (09:40→17:31)
[2021-03-23] MEDS: LOSARTAN POTASSIUM 25 MG TABLET NG SCH (09:41)
[2021-03-23] MEDS: METOPROLOL TARTRATE 50MG TABLET PO SCH ×2 (09:41→20:52)
[2021-03-23] MEDS: PANTOPRAZOLE SODIUM 40 MG/VIAL IV SCH ×2 (10:53→17:31)
[2021-03-23 12:23] LABS: PLATELET ESTIMATE NORMAL
[2021-03-23] MEDS ORDERED: LACTULOSE 20G/30ML UDC PO SCH (22:00)
== END 2021-03-23 22:45 | DRG 130 ==
LOC: ER 14:27 → MICUSO 17:54 → CVICU 03-04 18:04 → 7EST 03-22 19:18
PROVIDERS: ADMIT Internal Medicine; ATTEND Internal Medicine
PROC: 5A1955Z Respiratory Ventilation, Greater than 96 Consecutive Hours (ICD-10-PCS; principal; 2021-03-03)
PROC: 0BH17EZ Insertion of Endotracheal Airway into Trachea, Via Natural or Artificial Opening (ICD-10-PCS; 2021-03-03)
PROC: 06HY33Z Insertion of Infusion Device into Lower Vein, Percutaneous Approach (ICD-10-PCS; 2021-03-03)
PROC: 5A1D70Z Performance of Urinary Filtration, Intermittent, Less than 6 Hours Per Day (ICD-10-PCS; 2021-03-04)
PROC: 5A1D70Z Performance of Urinary Filtration, Intermittent, Less than 6 Hours Per Day (ICD-10-PCS; 2021-03-06)
PROC: 0W993ZZ Drainage of Right Pleural Cavity, Percutaneous Approach (ICD-10-PCS; 2021-03-06)
PROC: 5A1D70Z Performance of Urinary Filtration, Intermittent, Less than 6 Hours Per Day (ICD-10-PCS; 2021-03-08)
PROC: 0W9B3ZZ Drainage of Left Pleural Cavity, Percutaneous Approach (ICD-10-PCS; 2021-03-08)
PROC: 5A1D70Z Performance of Urinary Filtration, Intermittent, Less than 6 Hours Per Day (ICD-10-PCS; 2021-03-10)
PROC: 5A1D70Z Performance of Urinary Filtration, Intermittent, Less than 6 Hours Per Day (ICD-10-PCS; 2021-03-13)
PROC: 5A1D70Z Performance of Urinary Filtration, Intermittent, Less than 6 Hours Per Day (ICD-10-PCS; 2021-03-15)
PROC: 5A1D70Z Performance of Urinary Filtration, Intermittent, Less than 6 Hours Per Day (ICD-10-PCS; 2021-03-16)
PROC: 5A09457 Assistance with Respiratory Ventilation, 24-96 Consecutive Hours, Continuous Positive Airway Pressure (ICD-10-PCS; 2021-03-16)
PROC: 5A1D70Z Performance of Urinary Filtration, Intermittent, Less than 6 Hours Per Day (ICD-10-PCS; 2021-03-17)
PROC: 4A10X4Z Monitoring of Central Nervous Electrical Activity, External Approach (ICD-10-PCS; 2021-03-19)
PROC: 5A1D70Z Performance of Urinary Filtration, Intermittent, Less than 6 Hours Per Day (ICD-10-PCS; 2021-03-19)
PROC: 02HV33Z Insertion of Infusion Device into Superior Vena Cava, Percutaneous Approach (ICD-10-PCS; 2021-03-19)
PROC: B548ZZA Ultrasonography of Superior Vena Cava, Guidance (ICD-10-PCS; 2021-03-19)
PROC: 5A1D70Z Performance of Urinary Filtration, Intermittent, Less than 6 Hours Per Day (ICD-10-PCS; 2021-03-21)
PROC: 30233N1 Transfusion of Nonautologous Red Blood Cells into Peripheral Vein, Percutaneous Approach (ICD-10-PCS; 2021-03-21)
PROC: 5A1D70Z Performance of Urinary Filtration, Intermittent, Less than 6 Hours Per Day (ICD-10-PCS; 2021-03-22)
DX: J96.01 Acute respiratory failure with hypoxia (principal); G92.8 Other toxic encephalopathy; G82.50 Quadriplegia, unspecified; A41.9 Sepsis, unspecified organism; I50.23 Acute on chronic systolic (congestive) heart failure; N18.6 End stage renal disease; I27.81 Cor pulmonale (chronic); I48.20 Chronic atrial fibrillation, unspecified; J18.9 Pneumonia, unspecified organism; I34.0 Nonrheumatic mitral (valve) insufficiency; R00.1 Bradycardia, unspecified; E78.5 Hyperlipidemia, unspecified; D63.1 Anemia in chronic kidney disease; R16.0 Hepatomegaly, not elsewhere classified; R18.8 Other ascites; J91.8 Pleural effusion in other conditions classified elsewhere; E11.22 Type 2 diabetes mellitus with diabetic chronic kidney disease; I42.9 Cardiomyopathy, unspecified; R82.81 Pyuria; R13.10 Dysphagia, unspecified; R20.0 Anesthesia of skin; R26.89 Other abnormalities of gait and mobility; K59.00 Constipation, unspecified; R19.5 Other fecal abnormalities; R47.01 Aphasia; I13.2 Hypertensive heart and chronic kidney disease with heart failure and with stage 5 chronic kidney disease, or end stage renal disease; Z20.822 Contact with and (suspected) exposure to COVID-19; Z99.2 Dependence on renal dialysis; Z79.01 Long term (current) use of anticoagulants; Z87.891 Personal history of nicotine dependence; Z89.422 Acquired absence of other left toe(s); Z89.421 Acquired absence of other right toe(s); Z99.3 Dependence on wheelchair
CPT/HCPCS: 32555; 36415; 36600; 70551; 71045; 71275; 74018; 76604; 76700; 76937; 80048; 80053; 80076; 80202; 80320; 81003; 82140; 82270; 82375; 82607; 82728; 82746; 82805; 82962; 83036; 83540; 83550; 83605; 83615; 83735; 83880; 84100; 84145; 84155; 84439; 84443; 84478; 84481; 84484; 85014; 85018; 85025; 85044; 86703; 86705; 86709; 86803; 86850; 86900; 86920; 87070; 87077; 87186; 87340; 87426; 88108; 88312; 90686; 90732; 92610; 93005; 93306; 94002; 94003; 94640; 97161; 97165; 97166; 99291; C1725; C9113; C9803; J0360; J0692; J1650; J1815; J2250; J2543; J2704; J2765; J2920; J3010; J3370; J3490; J7030; J7040; J7050; J7060; J7070; P9016; Q9967; U0003; U0005; G0480